=== PATIENT | male | born 1975 | race American Indian/Alaskan Native ===

== ENCOUNTER 2016-12-11 10:53 | Emergency (ER) | payer SELFPAY ==
[2016-12-11 11:01] VITALS: BP 122/72
--- NOTE | 2016-12-11 11:14 | Emergency Department Report ---
- General Chief Complaint: Upper Respiratory Infection Stated Complaint: FLU SYMPTOMS Time Seen by Provider: 12/11/16 11:05 Source: patient Mode of arrival: Ambulatory Limitations: No Limitations - History of Present Illness Initial Comments: Patient states he is here for a work note only MD Complaint: fever, cough -: days(s) - Related Data Allergies Allergy/AdvReac Type Severity Reaction Status Date / Time No Known Allergies Allergy Unverified 12/11/16 10:58 ED Review of Systems ROS: Stated complaint: FLU SYMPTOMS Other details as noted in HPI Constitutional: chills, fever, malaise Eyes: denies: eye pain, eye discharge, vision change ENT: denies: ear pain, throat pain Respiratory: cough. denies: shortness of breath, SOB with exertion, SOB at rest Cardiovascular: denies: chest pain, palpitations, dyspnea on exertion Gastrointestinal: denies: abdominal pain, nausea, vomiting Neurological: headache ED Physical Exam - General Limitations: No Limitations General appearance: alert, in no apparent distress - Head Head exam: Present: atraumatic, normocephalic - Eye Eye exam: Present: normal appearance - ENT ENT exam: Present: mucous membranes moist - Neck Neck exam: Present: normal inspection. Absent: meningismus - Respiratory Respiratory exam: Present: normal lung sounds bilaterally. Absent: respiratory distress, wheezes, rales, rhonchi, stridor - Cardiovascular Cardiovascular Exam: Present: regular rate - Neurological Exam Neurological exam: Present: alert, oriented X3 - Skin Skin exam: Present: warm, dry, normal color. Absent: rash, diaphoretic ED Course Vital Signs 12/11/16 10:59 Temperature 97.7 F Pulse Rate 67 Respiratory 18 Rate Blood Pressure 122/72 O2 Sat by Pulse 100 Oximetry Critical care attestation.: If time is entered above; I have spent that time in minutes in the direct care of this critically ill patient, excluding procedure time. ED Disposition Clinical Impression: Viral syndrome Disposition: DISCHARGED TO HOME OR SELFCARE Is pt being admited?: No Does the pt Need Aspirin: No Condition: Stable Instructions: Viral Syndrome (ED) Forms: Work/School Release Form(ED)
== END 2016-12-11 11:34 | disposition home or self-care (01) ==
LOC: ED 10:53
DX: B34.9 Viral infection, unspecified (principal)
CPT/HCPCS: 99282

== ENCOUNTER 2017-01-04 12:00 | Emergency (ER) | payer SELFPAY ==
[2017-01-04] MEDS ORDERED: MOTRIN PO ONE (16:29)
--- NOTE | 2017-01-04 16:33 | Emergency Department Report ---
ED Extremity Problem HPI - General Chief complaint: Extremity Injury, Lower Stated complaint: FOOT SWELLING Time Seen by Provider: 01/04/17 16:14 Source: patient Mode of arrival: Ambulatory Limitations: No Limitations - History of Present Illness Initial comments: 41-year-old -Citizen Of [place] male comes in for complaints of right knee swelling for a week. Patient reports that he has some pain he's taken some ibuprofen which helped take the edge off the pain. He denies any injuries no past medical history takes no medication and has no known drug allergies. MD Complaint: extremity pain, extremity swelling - Related Data Previous Rx's Medication Instructions Recorded Last Taken Type Ibuprofen [Motrin 800 MG tab] 800 mg PO Q8HR PRN #60 tablet 01/04/17 Unknown Rx Allergies Allergy/AdvReac Type Severity Reaction Status Date / Time No Known Allergies Allergy Unverified 12/11/16 10:58 ED Review of Systems ROS: Stated complaint: FOOT SWELLING Other details as noted in HPI Constitutional: denies: chills, fever ENT: denies: ear pain, throat pain Respiratory: denies: cough, shortness of breath, wheezing Genitourinary: denies: urgency, dysuria Musculoskeletal: joint swelling, arthralgia Skin: as per HPI Neurological: denies: headache, weakness, paresthesias ED Past Medical Hx - Past Medical History Previous Medical History?: No - Surgical History Past Surgical History?: No - Social History Smoking Status: Current Every Day Smoker Substance Use Type: Alcohol, Marijuana - Medications Home Medications: Home Medications Medication Instructions Recorded Confirmed Last Taken Type Ibuprofen [Motrin 800 MG tab] 800 mg PO Q8HR PRN #60 tablet 01/04/17 Unknown Rx ED Physical Exam - General Limitations: No Limitations - Head Head exam: Present: atraumatic, normocephalic - ENT ENT exam: Present: mucous membranes moist - Expanded Lower Extremity Exam Right Knee exam: Present: full ROM, tenderness, swelling. Absent: abrasion, erythema Lower Leg exam: Present: normal inspection, full ROM. Absent: tenderness, swelling Foot/Toe exam: Present: normal inspection, full ROM. Absent: tenderness Neuro vascular tendon exam: Absent: abnormal cap refill, sensory deficit, extremity cold to touch ED Course Vital Signs 01/04/17 01/04/17 12:31 16:43 Temperature 97.8 F Pulse Rate 59 L Respiratory 18 18 Rate Blood Pressure 111/75 O2 Sat by Pulse 100 Oximetry ED Medical Decision Making - Radiology Data Radiology results: report reviewed, image reviewed FINAL REPORT PROCEDURE: XR KNEE 3V RT TECHNIQUE: RIGHT knee radiographs, AP, lateral and oblique views. CPT 88157 HISTORY: Right knee swelling and pain. COMPARISON: No prior studies are available for comparison. FINDINGS: Fracture (s) and/or Dislocation(s): A well-defined lucency is seen about the lateral tibial plateau. Alignment: Mild medial patellofemoral compartment narrowing and osteophytes. Small patellar enthesophyte. Moderate joint effusion. Tibial eminence spurring. Joint space(s): Normal . Soft tissues: Normal . Bone mineralization: Normal . Foreign bodies: None . IMPRESSION: Well-defined lucency in the lateral tibial plateau. Consider this could be chronic, degenerative slant and/or posttraumatic. With appearance consider could be related to prior hardware. Would correlate with surgical history. There is a moderate joint effusion. Consider further evaluation including CT scan or MRI (if patient has no contraindication to MRI) if there is concern for subtle superimposed injury/fracture or ligamentous/meniscal pathology. Mild degenerative changes. - Medical Decision Making Patient evaluated by this provider in fast track. We will order a right knee x- ray concern for need fusion. Ibuprofen 800 mg by mouth now. Reevaluate patient after ibuprofen and x-ray. He verbalized understanding Critical care attestation.: If time is entered above; I have spent that time in minutes in the direct care of this critically ill patient, excluding procedure time. ED Disposition Clinical Impression: Effusion, right knee Disposition: DISCHARGED TO HOME OR SELFCARE Is pt being admited?: No Does the pt Need Aspirin: No Condition: Stable Additional Instructions: It's very importantly to follow up with orthopedic to reevaluation the possible need for MRI or CT that will be determined by the orthopedic. Take ibuprofen as prescribed for swelling and pain. Prescriptions: Ibuprofen [Motrin 800 MG tab] 800 mg PO Q8HR PRN #60 tablet PRN Reason: Pain Referrals: PRIMARY CARE, [Primary Care Provider] - 3-5 Days PARK HOLCOMB MD [Staff Physician] - 3-5 Days DIEGO SZYMANSKI MD [Staff Physician] - 3-5 Days Forms: Work/School Release Form(ED)
--- NOTE | 2017-01-04 18:31 | XRay Report ---
FINAL REPORT PROCEDURE: XR KNEE 3V RT TECHNIQUE: RIGHT knee radiographs, AP, lateral and oblique views. CPT 97937 HISTORY: Right knee swelling and pain. COMPARISON: No prior studies are available for comparison. FINDINGS: Fracture (s) and/or Dislocation(s): A well-defined lucency is seen about the lateral tibial plateau. Alignment: Mild medial patellofemoral compartment narrowing and osteophytes. Small patellar enthesophyte. Moderate joint effusion. Tibial eminence spurring. Joint space(s): Normal . Soft tissues: Normal . Bone mineralization: Normal . Foreign bodies: None . IMPRESSION: Well-defined lucency in the lateral tibial plateau. Consider this could be chronic, degenerative slant and/or posttraumatic. With appearance consider could be related to prior hardware. Would correlate with surgical history. There is a moderate joint effusion. Consider further evaluation including CT scan or MRI (if patient has no contraindication to MRI) if there is concern for subtle superimposed injury/fracture or ligamentous/meniscal pathology. Mild degenerative changes.
[2017-01-04 18:49] VITALS: BP 114/78
== END 2017-01-04 18:45 | disposition home or self-care (01) ==
LOC: ED 12:00
DX: M25.461 Effusion, right knee (principal); F17.200 Nicotine dependence, unspecified, uncomplicated; F12.10 Cannabis abuse, uncomplicated; Z79.1 Long term (current) use of non-steroidal anti-inflammatories (NSAID)
CPT/HCPCS: 99283